=== PATIENT | male | born 2000 | race Caucasian/White ===

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

== ENCOUNTER 2022-02-28 17:38 | Emergency (ER) | payer BC, OTHER ==
[~2022-02-28] VITALS: Ht 180.3 cm; Wt 140.6 kg
[~2022-02-28 17:38] MED LIST changes: +PREDNISONE50 MG PO
== END 2022-02-28 18:13 | disposition left against medical advice (07) ==
LOC: ED 17:38
DX: R51.9 Headache, unspecified (principal); Z53.21 Procedure and treatment not carried out due to patient leaving prior to being seen by health care provider

== ENCOUNTER 2022-07-17 15:12 | Emergency (ER) | payer OTHER ==
[~2022-07-17] VITALS: Ht 180.3 cm; Wt 149.7 kg
[2022-07-17 15:53] LABS: BASO % 0.5 % (0.0-1.0); EOS # 0.3 10*3/uL (0.0-0.4); EOS % 4.3 % (1.0-4.0); HEMATOCRIT 40.9 % (42.0-52.0); LYMPH # 2.2 10*3/uL (1.3-4.4); LYMPH % 28.6 % (27.0-41.0); MEAN CELL VOLUME 91.3 fl (80.0-94.0); MEAN CORPUSCULAR HGB 31.5 pg (27.0-31.0); MEAN CORPUSCULAR HGB CONC 34.5 g/dl (33.0-37.0); MEAN PLATELET VOLUME 9.9 fl (9.6-12.3); MONO # 0.9 10*3/uL (0.1-1.0); MONO % 11.6 % (3.0-9.0); NEUT # 4.3 10*3/uL (2.3-7.9); NEUT % 54.9 % (47.0-73.0); PLATELET COUNT AUTOMATED 272 10*3/uL (130-400); RED BLOOD COUNT 4.48 10*6/uL (4.50-5.90); RED CELL DISTRI WIDTH 12.5 % (0-14.5); WHITE BLOOD COUNT 7.8 10*3/uL (4.8-10.8)
[2022-07-17 16:14] LABS: ALKALINE PHOSPHATASE 88 U/L (46-116); BUN 11 mg/dl (9-23); CHLORIDE 107 mmol/L (98-107); POTASSIUM 3.8 mmol/L (3.4-5.1); SGPT/ALT 73 U/L (10-49); TOTAL PROTEIN 7.5 gm/dL (6.0-8.0)
== END 2022-07-17 16:44 | disposition home or self-care (01) ==
LOC: ED 15:12
PROVIDERS: Nurse Practitioner Family
DX: B34.9 Viral infection, unspecified (principal); Z86.16 Personal history of COVID-19

== ENCOUNTER 2023-01-01 13:02 | Emergency (ER) | payer OTHER ==
[2023-01-01] MEDS ORDERED: PREDNISONE20 M1 PO (13:57)
== END 2023-01-01 14:07 | disposition home or self-care (01) ==
LOC: ED 13:02
DX: L25.9 Unspecified contact dermatitis, unspecified cause (principal); Z86.16 Personal history of COVID-19

== ENCOUNTER 2024-01-01 07:47 | Emergency (ER) | payer OTHER, BC, MEDICAID ==
[~2024-01-01] VITALS: Ht 180.3 cm; Wt 147.4 kg
[2024-01-01] MEDS ORDERED: Metoclopramide Hydrochloride 10 MG/2 ML AMP IV ONE (08:15)
[2024-01-01] MEDS ORDERED: Ketorolac Tromethamine 30 MG/ML VIAL IV ONE (08:15)
[2024-01-01] MEDS ORDERED: Albuterol Sulf/Ipratropium 3 ML VIAL NEB ONE (08:15)
[2024-01-01] MEDS ORDERED: ACETAMINOPHEN 325 MG TAB PO ONE (08:15)
[2024-01-01] MEDS ORDERED: diphenhydrAMINE hydrochloride 50 MG/ML VIAL IV ONE (08:15)
[2024-01-01] MEDS ORDERED: SODIUM CHLORIDE 0.9% 1,000 ML IV ONE (08:15)
[2024-01-01 08:31] LABS: BASO # 0.1 10*3/uL (0.0-0.1); BASO % 0.7 % (0.0-1.0); EOS # 0.2 10*3/uL (0.0-0.4); EOS % 2.6 % (1.0-4.0); HEMATOCRIT 41.2 % (42.0-52.0); LYMPH # 2.9 10*3/uL (1.3-4.4); LYMPH % 36.3 % (27.0-41.0); MEAN CELL VOLUME 94.3 fl (80.0-94.0); MEAN PLATELET VOLUME 9.7 fl (9.6-12.3); MONO # 0.8 10*3/uL (0.1-1.0); MONO % 9.7 % (3.0-9.0); NEUT # 4.1 10*3/uL (2.3-7.9); NEUT % 50.5 % (47.0-73.0); PLATELET COUNT AUTOMATED 275 10*3/uL (130-400); RED BLOOD COUNT 4.37 10*6/uL (4.50-5.90); RED CELL DISTRI WIDTH 12.4 % (0-14.5); WHITE BLOOD COUNT 8.1 10*3/uL (4.8-10.8)
[2024-01-01 08:44] LABS: ACT PARTIAL THROMBO TIME 28.5 SECONDS (20.0-32.1)
[2024-01-01 08:55] LABS: ALKALINE PHOSPHATASE 82 U/L (46-116); BUN 14 mg/dl (9-23); CHLORIDE 107 mmol/L (98-107); LIPASE 35 U/L (12-53); POTASSIUM 3.9 mmol/L (3.4-5.1); SGPT/ALT 37 U/L (5-49); TOTAL PROTEIN 7.6 gm/dL (6.0-8.0)
[2024-01-01] MEDS ORDERED: MEDROL DOSEPAK4 MG PO (09:15)
== END 2024-01-01 09:20 | disposition home or self-care (01) ==
LOC: ED 07:47
PROVIDERS: Internal Medicine
DX: J45.901 Unspecified asthma with (acute) exacerbation (principal); R51.9 Headache, unspecified; F17.200 Nicotine dependence, unspecified, uncomplicated

== ENCOUNTER 2024-03-09 08:34 | Emergency (ER) | payer OTHER, BC, MEDICAID ==
[~2024-03-09] VITALS: Ht 180.3 cm; Wt 149.7 kg
[~2024-03-09 08:34] MED LIST changes: +MEDROL DOSEPAK4 MG PO
[2024-03-09] MEDS ORDERED: Amoxicillin/Clavulanate Pota 875 MG TAB PO ONE (08:50)
[2024-03-09] MEDS ORDERED: AMOX-CLAV 875-1 EACH PO (08:51)
== END 2024-03-09 09:00 | disposition home or self-care (01) ==
LOC: ED 08:34
DX: J02.0 Streptococcal pharyngitis (principal); K21.9 Gastro-esophageal reflux disease without esophagitis; Z88.8 Allergy status to other drugs, medicaments and biological substances

== ENCOUNTER 2024-12-10 09:42 | Emergency (ER) | payer OTHER ==
[~2024-12-10] VITALS: Ht 180.3 cm; Wt 140.6 kg
[~2024-12-10 09:42] MED LIST changes: +AMOX-CLAV 875-1 EACH PO
[2024-12-10] MEDS ORDERED: VENT7GM INH (10:44)
[2024-12-10] MEDS ORDERED: AMOX-CLAV 875-1 EACH PO (10:44)
== END 2024-12-10 11:00 | disposition home or self-care (01) ==
LOC: ED 09:42
DX: J02.0 Streptococcal pharyngitis (principal); K21.9 Gastro-esophageal reflux disease without esophagitis; Z79.899 Other long term (current) drug therapy

== ENCOUNTER 2025-02-24 02:23 | Emergency (ER) | payer OTHER ==
[~2025-02-24] VITALS: Ht 180.3 cm; Wt 122.5 kg
[~2025-02-24 02:23] MED LIST changes: +VENT7GM INH
[2025-02-24] MEDS ORDERED: SODIUM CHLORIDE 0.9% 1,000 ML IV ONE (02:30)
[2025-02-24] MEDS ORDERED: diphenhydrAMINE hydrochloride 50 MG/ML VIAL IV ONE (02:30)
[2025-02-24] MEDS ORDERED: FAMOTIDINE 50 ML IV ONE (02:30)
[2025-02-24] MEDS ORDERED: Dexamethasone Sodium Phospha 20 MG/5 ML VIAL IV ONE (02:30)
[2025-02-24] MEDS ORDERED: PREDNISONE50 MG PO (04:08)
== END 2025-02-24 04:16 | disposition home or self-care (01) ==
LOC: ED 02:23
DX: L25.9 Unspecified contact dermatitis, unspecified cause (principal); J45.909 Unspecified asthma, uncomplicated

== ENCOUNTER 2025-02-28 14:24 | Emergency (ER) | payer OTHER ==
[~2025-02-28] VITALS: Ht 180.3 cm; Wt 140.6 kg
[2025-02-28] MEDS ORDERED: diphenhydrAMINE hydrochloride 25 MG CAP PO ONE (15:10)
[2025-02-28] MEDS ORDERED: FAMOTIDINE 20 MG TAB PO ONE (15:10)
[2025-02-28] MEDS ORDERED: PREDNISONE50 MG PO (15:39)
[2025-02-28] MEDS ORDERED: Water, Sterile 10 ML VIAL ONE (16:14)
== END 2025-02-28 16:06 | disposition home or self-care (01) ==
LOC: ED 14:24
DX: L23.9 Allergic contact dermatitis, unspecified cause (principal); Z79.899 Other long term (current) drug therapy